=== PATIENT | male | born 1925 | race Caucasian/White ===

== ENCOUNTER 2016-09-07 09:42 | Day surgery (SDC) | payer MEDICARE, OTHER ==
[2016-09-06 10:13] LABS: BASOPHILS 0.1 %; BASOPHILS ABSOLUTE 0.01 10/3/uL (0.0-0.16); EOSINOPHILS 0.5 %; EOSINOPHILS ABSOLUTE 0.04 10/3/uL (0.0-0.53); HEMATOCRIT 28.4 % (40.0-51.0); HEMOGLOBIN 9.6 g/dL (13.6-17.8); IMMATURE GRANULOCYTES 0.1 %; IMMATURE GRANULOCYTES ABSOLUTE 0.01 10/3/uL (0.0-0.11); LYMPHOCYTES 12.9 %; LYMPHOCYTES ABSOLUTE 1.14 10/3/uL (0.67-4.30); MANUAL DIFF NO %; MEAN CORPUS HGB CONC 33.8 g/dL (32.0-36.0); MEAN CORPUSCULAR VOLUME 100.7 fL (80-100); MEAN PLATELET VOLUME 9.4 fL (9.2-13.0); MONOCYTES 9.9 %; MONOCYTES ABSOLUTE 0.87 10/3/uL (0.21-1.20); NEUTROPHILS 76.5 %; NEUTROPHILS ABSOLUTE 6.75 10/3/uL (2.02-8.40); PLATELET COUNT 394 10/3/uL (150-400); RBC DISTRIBUTION WIDTH 15.8 % (12.0-16.0); RED CELL COUNT 2.82 10/6/uL (4.7-6.1); WHITE BLOOD CELLS 8.8 10/3/uL (4.5-10.5)
[2016-09-06 10:22] LABS: BUN (BLOOD UREA NITROGEN) 58 MG/DL (6-23); CALCIUM, SERUM 8.7 MG/DL (8.5-10.4); CHLORIDE, SERUM 100 MMOL/L (96-112); CO2 (CARBON DIOXIDE) 28 MMOL/L (24-34); CREATININE 3.56 MG/DL (0.70-1.30); GFR AFRICAN AMERICAN 17 ML/MIN (>=60); GFR NON AFRICAN AMERICAN 14 ML/MIN (>=60); GLUCOSE, SERUM 120 MG/DL (60-99); POTASSIUM, SERUM 3.8 MMOL/L (3.5-5.3); SODIUM, SERUM 138 MMOL/L (135-148)
[2016-09-06 10:32] LABS: PFA (COL/EPI) 87 SEC (72-180)
[2016-09-06 10:50] LABS: ASCORBIC ACID (UR NOT ORDER) NEG (NEG); BILIRUBIN, URINE NEGATIVE (NEG); KETONE, URINE NEGATIVE (NEG); LEUKOCYTE ESTERASE(NOT OR NEG (NEG); WBC (NOT ORDERED) (RFLEX) 5 (0-5)
--- NOTE | ~2016-09-07 | OP ---
Record Of Operation [facility] [address] [place]. [address] NAME: DASIA BELTRAN : [birth year] STATUS : [facility]#: [id number] AGE: 89 ADM/REG DATE : 09/07/16 MR#: [id number] REPORT SERV DATE: 09/07/16 DICTATED BY: LISA BLACK DATE: 09/07/16 REPORT STATUS : Draft TRANSCRIBED BY: MODL DATE: 09/07/16 DATE OF PROCEDURE: 09/07/2016 PREOPERATIVE DIAGNOSIS: Right ureteral stone. POSTOPERATIVE DIAGNOSIS: Right ureteral stone. PROCEDURE PERFORMED: 1. Right ESWL (ureteral stone, initial treatment). 2. Cystoscopy with right ureteral stent placement. SURGEON: Lisa Black M.D. ANESTHESIA: General. COMPLICATIONS: None. DRAINS: A 28 cm right ureteral stent. INDICATIONS: The patient is an 89-year-old, with symptomatic right ureteral stone. He has had intractable pain since Sunday. He presents for ESWL. He held his aspirin on Sunday. PSA is normal. His creatinine is risen to 3.5. We are placing a ureteral stent, due to his rising creatinine. TECHNIQUE: Informed consent was obtained. He was brought to the operating room, general anesthesia was administered. Genitals and perineum prepped and draped in lithotomy position in sterile fashion. Rigid cystoscopy was performed. The urethra was normal. The prostate was obstructed. There was no stone or lesion in the bladder, some blood was present at the bladder base. Right ureter was cannulated. Under fluoroscopic guidance, I placed a 0.038 angled Glidewire up to the right kidney. This was visually passed beyond the upper ureteral stone. I removed the cystoscope, advanced it next to the wire and back into the bladder. Under cystoscopic vision, I placed a 28 cm, [place] right ureteral stent. The stone was pushed back up into the upper pole with passage of the stent. The dangling string was removed. Coil was confirmed endoscopically in the bladder and fluoroscopically in the renal pelvis. He was repositioned, the stone was identified with biplanar fluoroscopy. A total of 2500 shocks were administered at a maximum power level of 3, using the Dornier Compact Delta II shock wave Lithotripter. The first 500 shocks were administered at 60 shocks per minute. The remaining shocks were administered at 120 shocks per minute. There appeared to be excellent fragmentation of the upper pole stone. He will follow up in two weeks with a KUB. DANNY/SURJIT Record Of [address] [place]. [address] NAME: DASIA BELTRAN : [birth year] STATUS : [facility] PAT#: [id number] AGE: 89 ADM/REG DATE : 09/07/16 MR#: [id number] REPORT SERV DATE: 09/07/16 DICTATED BY: LISA BLACK DATE: 09/07/16 REPORT STATUS : Draft TRANSCRIBED BY: SURJIT DATE: 09/07/16 Lisa Black M.D. / [id number] CC: June Neely M.D.
[~2016-09-07 09:42] MED LIST: 8 HOUR650 MG PO; ASAB PO; BEN25 PO; BUM2 PO; COREG3 PO; COZ50 PO; DSS PO; FLOMAX4 PO; KLOR-CON M2020 MEQ PO; SYN.025B PO; VITAMIN D2000 UNIT PO; ZETIA PO; ZOCOR20 PO
== END 2016-09-07 14:54 | disposition home or self-care (01) ==
LOC: SDC 09:42
PROVIDERS: Urology
PROC: 0T768DZ Dilation of Right Ureter with Intraluminal Device, Via Natural or Artificial Opening Endoscopic (ICD-10-PCS; principal; 2016-09-07 12:00)
PROC: 0TF6XZZ Fragmentation in Right Ureter, External Approach (ICD-10-PCS; 2016-09-07 12:00)
DX: N20.1 Calculus of ureter (principal); I50.9 Heart failure, unspecified; K21.9 Gastro-esophageal reflux disease without esophagitis; I12.9 Hypertensive chronic kidney disease with stage 1 through stage 4 chronic kidney disease, or unspecified chronic kidney disease; N18.3 Chronic kidney disease, stage 3 (moderate)
CPT/HCPCS: 50590; 52332; 74000; 80048; 81001; 85025; 85576; 93005; C1758; C1769; C2617; J3010; Q9967